=== PATIENT | female | born 1985 | race Two or more races ===

== ENCOUNTER 2017-01-31 16:04 | Emergency (ER) | payer MEDICAID ==
[~2017-01-31] VITALS: Ht 149.9 cm; Wt 58.1 kg
[2017-01-31 16:27] VITALS: BP 117/85
== END 2017-01-31 18:45 | disposition home or self-care (01) ==
LOC: ER 16:08
DX: M54.5 Low back pain (principal); M19.90 Unspecified osteoarthritis, unspecified site; Z88.6 Allergy status to analgesic agent

== ENCOUNTER 2019-03-12 07:37 | Emergency (ER) | payer MEDICAID ==
[~2019-03-12] VITALS: Ht 149.9 cm; Wt 56.7 kg
[2019-03-12 08:00] VITALS: BP 113/59
[2019-03-12] MEDS: TETANUS-DIPTH-ACEL PERTUSSIS 0.5ML SYRG IM ONE (08:26)
== END 2019-03-12 08:40 | disposition home or self-care (01) ==
LOC: ER 07:38
DX: S81.031A Puncture wound without foreign body, right knee, initial encounter (principal); W54.0XXA Bitten by dog, initial encounter; Y93.89 Activity, other specified; Y92.89 Other specified places as the place of occurrence of the external cause; Y99.8 Other external cause status; Z88.6 Allergy status to analgesic agent; Z88.8 Allergy status to other drugs, medicaments and biological substances
CPT/HCPCS: 90471; 90715

== ENCOUNTER 2021-04-27 09:47 | Emergency (ER) | payer MEDICAID ==
[~2021-04-27] VITALS: Ht 149.9 cm; Wt 65.3 kg
[2021-04-27] MEDS ORDERED: FERROUS SULFATE 325mg EC TAB PO ONE (10:15)
[2021-04-27 10:56] VITALS: BP 100/76
[2021-04-27 11:06] LABS: Basophils # (auto) 0.1 10 ^3/uL (0-0.2); Eosinophils # (auto) 0.4 10 ^3/uL (0-0.8); Monocytes # (auto) 0.5 10 ^3/uL (0-1.3); Neutrophils # (auto) 3.4 10 ^3/uL (1.6-8.6)
[2021-04-27 11:08] LABS: Eosinophils % (auto) 6.8 % (0.0-7.0); Hematocrit 27.6 % (36.0-46.0); Hemoglobin 8.5 g/dL (12.2-16.2); Lymphocytes # (auto) 1.6 10 ^3/uL (0.4-5.4); Lymphocytes % (auto) 26.9 % (10.0-50.0); Mean Corpuscular Hemoglobin 20.5 pg (28.0-32.0); Mean Corpuscular Hgb Conc. 30.7 g/dL (32.0-36.0); Mean Corpuscular Volume 66.8 fL (80.0-100.0); Monocytes % (auto) 8.8 % (0.0-12.0); Neutrophils % (auto) 56.5 % (37.0-80.0); Platelet Count (auto) 441 10^3/uL (140-450); Red Blood Cells 4.13 10^6/uL (4.0-5.20); Red Cell Distribution Width 17.3 % (11.8-14.3)
[2021-04-27 11:47] LABS: Calcium 8.5 mg/dL (8.5-10.1); Potassium 3.9 mmol/L (3.5-5.1)
[2021-04-27 11:51] LABS: BUN/Creatinine Ratio 11.6; Bilirubin, Total 0.5 mg/dL (0.2-1.0); Total Protein 8.4 g/dL (6.4-8.2)
[2021-04-27 12:04] LABS: Urine Bacteria FEW /hpf (None Seen); Urine Blood 1+ /uL (Negative); Urine Mucus FEW (None Seen); Urine Specific Gravity 1.024 (1.001-1.035); Urine WBC 2 /hpf (0 - 5)
== END 2021-04-27 12:05 | disposition home or self-care (01) ==
LOC: ER 09:47
DX: D64.89 Other specified anemias (principal); Z88.8 Allergy status to other drugs, medicaments and biological substances
CPT/HCPCS: 36415; 80053; 81001; 85025; 85049

== ENCOUNTER 2023-03-26 07:34 | Emergency (ER) | payer MEDICAID, OTHER ==
[~2023-03-26] VITALS: Ht 149.9 cm; Wt 68.8 kg
[2023-03-26 08:06] LABS: Basophils # (auto) 0.1 10 ^3/uL (0-0.2); Basophils % (auto) 1.1 % (0.0-2.0); Eosinophils # (auto) 0.4 10 ^3/uL (0-0.8); Eosinophils % (auto) 4.1 % (0.0-7.0); Hematocrit 36.1 % (36.0-46.0); Hemoglobin 11.8 g/dL (12.2-16.2); Lymphocytes % (auto) 18.1 % (10.0-50.0); Mean Corpuscular Hemoglobin 28.6 pg (28.0-32.0); Mean Corpuscular Hgb Conc. 32.7 g/dL (32.0-36.0); Mean Corpuscular Volume 87.3 fL (80.0-100.0); Monocytes # (auto) 0.6 10 ^3/uL (0-1.3); Monocytes % (auto) 5.3 % (0.0-12.0); Neutrophils # (auto) 7.8 10 ^3/uL (1.6-8.6); Neutrophils % (auto) 71.4 % (37.0-80.0); Red Blood Cells 4.14 10^6/uL (4.0-5.20); White Blood Cell 10.9 10^3/uL (4.4-10.8)
[2023-03-26 08:57] VITALS: BP 114/79
[2023-03-26 09:03] LABS: Potassium 3.8 mmol/L (3.5-5.1)
[2023-03-26 09:12] LABS: Albumin 3.7 g/dL (3.4-5.0); BUN/Creatinine Ratio 12.3 (10.0-20.0); Bilirubin, Total 0.4 mg/dL (0.2-1.0); Calcium 8.3 mg/dL (8.5-10.1); Total Protein 7.7 g/dL (6.4-8.2)
[2023-03-26 09:44] LABS: Urine Bacteria NONE SEEN /hpf (None Seen); Urine Blood 3+ /uL (Negative); Urine Mucus FEW (None Seen); Urine Specific Gravity 1.017 (1.001-1.035); Urine WBC 89 /hpf (0 - 5)
[2023-03-26] MEDS ORDERED: CEPH500T PO (11:48)
== END 2023-03-26 11:55 | disposition home or self-care (01) ==
LOC: ER 07:34
DX: N93.8 Other specified abnormal uterine and vaginal bleeding (principal); N93.0 Postcoital and contact bleeding; R10.2 Pelvic and perineal pain; F32.9 Major depressive disorder, single episode, unspecified; Z88.6 Allergy status to analgesic agent; Z88.5 Allergy status to narcotic agent
CPT/HCPCS: 36415; 76830; 76856; 80053; 81001; 83690; 84702; 85025; 86850; 86900; 86901